=== PATIENT | male | born 1960 | race Native Hawaiian/Other Pacific Islander ===

== ENCOUNTER 2022-10-08 08:13 | Outpatient (CLI) | payer BC | END 2022-10-08 17:00 | disposition home or self-care (01) | LOC: RAD 08:13 | PROVIDERS: ATTEND Internal Medicine Clinical Cardiac Electrophysiology | DX: Z95.0 Presence of cardiac pacemaker (principal) ==

== ENCOUNTER 2022-12-31 12:23 | Outpatient (CLI) | payer BC | END 2022-12-31 20:09 | disposition home or self-care (01) | LOC: RAD 12:23 | PROVIDERS: ATTEND Internal Medicine Clinical Cardiac Electrophysiology | DX: Z95.0 Presence of cardiac pacemaker (principal) ==